=== PATIENT | female | born 1970 | race Two or more races ===

== ENCOUNTER 2019-11-13 17:46 | Emergency (ER) | payer OTHER ==
[~2019-11-13] VITALS: Ht 149.9 cm; Wt 47.2 kg
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
[2019-11-13] MEDS ORDERED: ACETAMINOPHEN ES 500 MG TABLET ONE (18:18)
--- NOTE | 2019-11-13 18:25 | NUR ---
XRAY AT BEDSIDE
[2019-11-13] MEDS ORDERED: ACETAMINOPHEN 325 MG TABLET PO ONE (18:30)
--- NOTE | 2019-11-13 19:40 | NUR ---
LEFT THUMB SPICA APPLIED
--- NOTE | 2019-11-13 19:44 | NUR ---
PATIENT IS WAITING FOR CT CD
--- NOTE | 2019-11-13 19:44 | NUR ---
Patient discharged to home in stable condition. Written and verbal after care instructions given. Patient verbalizes understanding of instruction.
[2019-11-13 19:45] VITALS: BP 133/76
== END 2019-11-13 20:09 | disposition home or self-care (01) ==
LOC: ER 17:46
DX: S50.812A Abrasion of left forearm, initial encounter (principal); S09.8XXA Other specified injuries of head, initial encounter; M54.2 Cervicalgia; M25.532 Pain in left wrist; M54.6 Pain in thoracic spine; M54.5 Low back pain; V49.49XA Driver injured in collision with other motor vehicles in traffic accident, initial encounter; Y93.89 Activity, other specified; Y92.413 State road as the place of occurrence of the external cause; Y99.8 Other external cause status
CPT/HCPCS: 70450-TC; 73110